=== PATIENT | male | born 1965 | race Two or more races ===

== ENCOUNTER 2018-03-13 18:57 | Emergency (ER) | payer MEDICAID ==
[~2018-03-13] VITALS: Ht 165.1 cm; Wt 58.0 kg
[2018-03-13 19:14] VITALS: BP 115/76
[2018-03-13] MEDS ORDERED: CEFTRIAXONE 250 MG ONE (19:25)
[2018-03-13] MEDS ORDERED: CEFTRIAXONE 250 MG IM ONE (19:30)
[2018-03-13] MEDS ORDERED: AZITHROMYCIN 500 MG TABLET PO ONE (19:30)
[2018-03-13] MEDS ORDERED: AZITHROMYCIN 250 MG TABLET ONE (19:32)
== END 2018-03-13 20:08 | disposition home or self-care (01) ==
LOC: ED 19:45
DX: A56.01 Chlamydial cystitis and urethritis (principal); A54.01 Gonococcal cystitis and urethritis, unspecified; F17.200 Nicotine dependence, unspecified, uncomplicated
CPT/HCPCS: 87491; 87591; 96372; 99284; J0696

== ENCOUNTER 2018-03-18 23:08 | Emergency (ER) | payer MEDICAID ==
[~2018-03-18] VITALS: Ht 165.1 cm; Wt 59.3 kg
[2018-03-18 23:10] VITALS: BP 118/78
[2018-03-18] MEDS ORDERED: KETOROLAC 30 MG/1 ML ONE (23:27)
[2018-03-18] MEDS ORDERED: KETOROLAC 30 MG/1 ML IM ONE (23:30)
== END 2018-03-18 23:48 | disposition home or self-care (01) ==
LOC: ED 23:31
DX: M54.5 Low back pain (principal)
CPT/HCPCS: 96372; 99283; J1885

== ENCOUNTER 2018-04-02 07:28 | Emergency (ER) | payer MEDICAID ==
[~2018-04-02] VITALS: Ht 165.1 cm; Wt 61.7 kg
[2018-04-02 08:56] LABS: BASOPHILS # (AUTO) 0.05 x10^3/uL (0-0.1); BASOPHILS % (AUTO) 1 % (0-1); EOSINOPHILS # (AUTO) 0.12 x10^3/uL (0-0.4); EOSINOPHILS % (AUTO) 1 % (1-7); LYMPHOCYTES # (AUTO) 1.44 x10^3/uL (1-3.4); LYMPHOCYTES % (AUTO) 16 % (22-44); MD NO; MEAN CORPUSCULAR HEMOGLOBIN 34.1 pg (27.5-34.5); MEAN CORPUSCULAR HGB CONC 34.1 g/dL (33.2-36.2); MEAN PLATELET VOLUME 7.4 fL (7.4-10.4); MONOCYTES # (AUTO) 0.78 x10^3/uL (0.2-0.8); MONOCYTES % (AUTO) 9 % (2-9); NEUTROPHILS # (AUTO) 6.84 x10^3/uL (1.8-6.8); NEUTROPHILS % (AUTO) 74 % (42-75); PLATELET COUNT 317 x10^3/uL (130-400); RED BLOOD COUNT 4.06 x10^6/uL (4.38-5.82); RED CELL DISTRIBUTION WIDTH 13.8 % (9.4-14.8)
[2018-04-02 09:04] LABS: ALANINE AMINOTRANSFERASE 34 U/L (12-78); ALBUMIN 3.4 g/dL (3.4-5.0); ANION GAP 3 mmol/L (5-15); CALCIUM 8.7 mg/dL (8.5-10.1); CHLORIDE 112 mmol/L (98-107); CREATININE 0.65 mg/dL (0.7-1.3)
[2018-04-02 09:06] LABS: ALKALINE PHOSPHATASE 63 U/L (45-117); BILIRUBIN,TOTAL 0.3 mg/dL (0.2-1.0); TOTAL PROTEIN 6.3 g/dL (6.4-8.2)
[2018-04-02 10:23] VITALS: BP 110/74
== END 2018-04-02 10:25 | disposition home or self-care (01) ==
LOC: ED 08:30
DX: M25.512 Pain in left shoulder (principal); M25.522 Pain in left elbow; M25.532 Pain in left wrist
CPT/HCPCS: 36415; 72050; 80053; 85025; 93005; 99285

== ENCOUNTER 2018-04-22 22:33 | Emergency (ER) | payer MEDICAID ==
[~2018-04-22] VITALS: Ht 165.1 cm; Wt 59.3 kg
[2018-04-22 22:35] VITALS: BP 128/83
[2018-04-22] MEDS ORDERED: CIPROFLOXACIN 500 MG TABLET ONE (23:51)
[2018-04-22] MEDS ORDERED: IBUPROFEN 200 MG TABLET ONE (23:51)
[2018-04-22] MEDS ORDERED: OXYcodone/APAP 10/325MG TABLET ONE (23:51)
[2018-04-22] MEDS ORDERED: CEFTRIAXONE 1,000 MG ONE (23:57)
[2018-04-23] MEDS ORDERED: CEFTRIAXONE 1,000 MG IM ONE
[2018-04-23] MEDS ORDERED: OXYcodone/APAP 10/325MG TABLET PO ONE
[2018-04-23] MEDS ORDERED: IBUPROFEN 200 MG TABLET PO ONE
== END 2018-04-23 00:04 | disposition home or self-care (01) ==
LOC: ED 23:59
DX: N45.1 Epididymitis (principal)
CPT/HCPCS: 76870; 93975; 96372; 99284; J0696

== ENCOUNTER 2021-01-24 14:19 | Emergency (ER) | payer MEDICAID ==
[~2021-01-24] VITALS: Ht 165.1 cm; Wt 65.0 kg
[2021-01-24 14:30] VITALS: BP 99/58
[2021-01-24] MEDS ORDERED: METHOCARBAMOL 750 MG TABLET ONE (15:23)
[2021-01-24] MEDS ORDERED: KETOROLAC 30 MG/1 ML ONE (15:23)
[2021-01-24] MEDS ORDERED: KETOROLAC 30 MG/1 ML IM ONE (15:30)
[2021-01-24] MEDS ORDERED: METHOCARBAMOL 750 MG TABLET PO ONE (15:30)
== END 2021-01-24 16:26 | disposition home or self-care (01) ==
LOC: ED 15:50
DX: M54.42 Lumbago with sciatica, left side (principal)
CPT/HCPCS: 72110; 96372; 99283; J1885; J7512